=== PATIENT | female | born 1960 ===

== ENCOUNTER 2025-01-06 11:15 | Inpatient (IN) | payer OTHER ==
[~2025-01-06] VITALS: Ht 160 cm; Wt 116.1 kg
[2025-01-06] MEDS ORDERED: LEVO-T50 MCG PO (13:26)
[2025-01-06] MEDS ORDERED: METFORMIN HCL850 M1 PO (13:26)
[2025-01-06] MEDS ORDERED: LOSARTAN POTASS50 MG PO (13:26)
[2025-01-06 13:27] VITALS: BP 106/67
[2025-01-06] MEDS ORDERED: LIPITOR40 MG PO (13:27)
[2025-01-06] MEDS ORDERED: PROAIR RESPICL90 MCG IH (13:27)
[2025-01-06] MEDS ORDERED: QVAR REDIHALE10.6 GM IH (13:27)
[2025-01-06 13:30] VITALS: BP 146/88
[2025-01-09] MEDS ORDERED: VISTASEAL DUAL APPICATOR 1 EACH APPL TOP ONE ×2 (09:29→10:00)
[2025-01-09] MEDS ORDERED: POVIDONE-IODINE 118 ML BOTT TOP ONE ×2 (09:29→10:00)
[2025-01-09] MEDS ORDERED: THROMBIN,HU/FIBRINOGEN/CALCIUM 10 ML SYRINGE TOP ONE ×2 (09:29→10:00)
[2025-01-09] MEDS ORDERED: METRONIDAZOLE/SODIUM CHLORIDE 500 MG/100 ML PIGGYBACK IV ONE ×2 (09:42→10:00)
[2025-01-09] MEDS ORDERED: CEFAZOLIN SODIUM 1,000 MG VIAL ONE ×2 (09:43→16:07)
[2025-01-09] MEDS ORDERED: CEFAZOLIN SODIUM 1,000 MG VIAL IV ONE (10:00)
[2025-01-09] MEDS ORDERED: SUGAMMADEX SODIUM 200 MG/2 ML VIAL IV ONE ×2 (11:10→11:15)
[2025-01-09] MEDS ORDERED: KETOROLAC TROMETHAMINE 30 MG VIAL IV ONE (12:45)
[2025-01-09] MEDS ORDERED: RINGERS SOLUTION,LACTATED 1,000 ML IV SCH (12:45)
[2025-01-09] MEDS ORDERED: OxyCODONE HCL 5 MG TABLET (ROXICODONE) PO PRN (12:45)
[2025-01-09] MEDS ORDERED: MORPHINE SULFATE 4 MG/ML VIAL IV PRN (12:45)
[2025-01-09] MEDS ORDERED: SIMETHICONE 125 MG CAPSULE PO SCH (13:00)
[2025-01-09] MEDS ORDERED: KETOROLAC TROMETHAMINE 30 MG VIAL ONE (16:06)
[2025-01-09] MEDS ORDERED: CEFAZOLIN SODIUM 1,000 MG VIAL IV SCH (17:00)
[2025-01-09] MEDS ORDERED: METOCLOPRAMIDE HCL 5 MG/ML VIAL IV SCH (17:00)
[2025-01-09] MEDS ORDERED: METOCLOPRAMIDE HCL 5 MG/ML VIAL ONE (17:26)
[2025-01-09] MEDS ORDERED: ACETAMINOPHEN 500 MG GEL..CAP PO ONE (17:26)
[2025-01-09] MEDS ORDERED: ACETAMINOPHEN 500 MG GEL..CAP PO SCH (18:00)
[2025-01-09 19:01] LABS: BASO % 0.2 % (0.1-1.2); EOS # 0.02 (0.04-0.54); EOS % 0.2 % (0.7-7.0); LYMPH # 1.25 (1.18-3.74); LYMPH % 9.9 % (19.3-53.1); MEAN PLATELET VOLUME 9.00 fl (9.4-12.4); MONO # 0.55 (0.24-0.82); MONO % 4.4 % (4.7-12.5); NEUT # 10.73 (1.56-6.13); NEUT % 85.1 % (34.0-71.1); RED CELL DISTRIBUTION WIDTH 13.3 % (11.6-14.4)
[2025-01-09 19:07] VITALS: BP 106/67; O2SAT 96
[2025-01-09 19:34] LABS: BUN CREA RATIO 15.0 (7.0-25.0); CREATININE SERUM 0.67 mg/dL (0.55-1.02); GFR 89.18; GLUCOSE FASTING 155.0 mg/dL (65-100); OSMOLALITY SERUM 278.0 MOSM/KG (275-295)
[2025-01-09] MEDS ORDERED: FAMOTIDINE/PF 20 MG/2 ML VIAL IV PUSH SCH (21:00)
[2025-01-09] MEDS ORDERED: GABAPENTIN 300 MG CAPSULE PO SCH (21:00)
[2025-01-09] MEDS ORDERED: DOCUSATE SODIUM 100MG CAP PO SCH (21:00)
[2025-01-09] MEDS ORDERED: CELECOXIB 200 MG CAPSULE PO SCH (21:00)
[2025-01-10] VITALS: BP 102/67
[2025-01-10 01:56] LABS: BASO % 0.4 % (0.1-1.2); EOS # 0.28 (0.04-0.54); EOS % 3.0 % (0.7-7.0); LYMPH # 2.04 (1.18-3.74); LYMPH % 22.2 % (19.3-53.1); MEAN PLATELET VOLUME 9.10 fl (9.4-12.4); MONO # 0.65 (0.24-0.82); MONO % 7.1 % (4.7-12.5); NEUT # 6.15 (1.56-6.13); NEUT % 67.0 % (34.0-71.1); RED CELL DISTRIBUTION WIDTH 13.3 % (11.6-14.4)
[2025-01-10 02:18] LABS: BUN CREA RATIO 20.0 (7.0-25.0); GFR 122.19; GLUCOSE FASTING 133.0 mg/dL (65-100); OSMOLALITY SERUM 278.0 MOSM/KG (275-295)
[2025-01-10 02:22] LABS: CREATININE SERUM 0.51 mg/dL (0.55-1.02)
[2025-01-10 08:46] VITALS: BP 116/76; O2SAT 98
[2025-01-10] MEDS ORDERED: ENOXAPARIN SODIUM 40 MG/0.4 ML SYRINGE SUBCUTANEO SCH (09:00)
== END 2025-01-10 11:30 | disposition home or self-care (01) | DRG 741 ==
LOC: O/R 01-09 09:00 → SURH 01-09 10:15 → OB/GYN 01-09 15:44
PROVIDERS: Obstetrics & Gynecology; ADMIT Obstetrics & Gynecology Gynecologic Oncology; ATTEND Obstetrics & Gynecology Gynecologic Oncology
PROC: 0UT74ZZ Resection of Bilateral Fallopian Tubes, Percutaneous Endoscopic Approach (ICD-10-PCS; 2025-01-09)
PROC: 0UT24ZZ Resection of Bilateral Ovaries, Percutaneous Endoscopic Approach (ICD-10-PCS; 2025-01-09)
PROC: 07BC4ZZ Excision of Pelvis Lymphatic, Percutaneous Endoscopic Approach (ICD-10-PCS; 2025-01-09)
PROC: 8E0W4CZ Robotic Assisted Procedure of Trunk Region, Percutaneous Endoscopic Approach (ICD-10-PCS; 2025-01-09)
PROC: 3E1M48Z Irrigation of Peritoneal Cavity using Irrigating Substance, Percutaneous Endoscopic Approach (ICD-10-PCS; 2025-01-09)
PROC: 0UT94ZZ Resection of Uterus, Percutaneous Endoscopic Approach (ICD-10-PCS; principal; 2025-01-09 10:15)
DX: C54.1 Malignant neoplasm of endometrium (principal)
CPT/HCPCS: 58548; 49084; S2900